=== PATIENT | male | born 1950 | race Caucasian/White ===

== ENCOUNTER 2016-12-18 15:08 | Emergency (ER) | payer OTHER ==
[~2016-12-18] VITALS: Ht 188 cm; Wt 111.0 kg
[~2016-12-18 15:08] MED LIST: ASPI81TA82 PO; CANA100T; JANU50TA9 PO; LIPI10TA PO; LISI-363 PO; MELO15; METO50TA; MULTCAP14 PO; PLAV75TA PO; PRED20 PO; ZOVI800T13 PO
[2016-12-18 15:15] VITALS: BP 147/98; PULSE 84; RESP 16; TEMP 98.2; O2SAT 98
[2016-12-18] MEDS ORDERED: CLOP75TA PO (16:03)
[2016-12-18] MEDS ORDERED: VERA80TA PO (16:03)
[2016-12-18] MEDS ORDERED: JANU50TA8 PO (16:03)
[2016-12-18] MEDS ORDERED: LISI-519 PO (16:03)
[2016-12-18] MEDS ORDERED: HYDR-3580 PO (16:03)
[2016-12-18] MEDS ORDERED: GLIM1TAB PO (16:03)
[2016-12-18] MEDS ORDERED: ATOR10TA15 PO (16:03)
[2016-12-18 16:10] VITALS: BP 167/86; PULSE 82; RESP 21; TEMP 98.3; O2SAT 96
--- NOTE | 2016-12-18 16:13 | PD ---
HPI Chief Complaint: Neuro Symptoms/ Deficits Time Seen by Provider: 16:00 Travel History International Travel<30 days: No Contact w/Intl Traveler<30days: No Traveled to known affect area: No History of Present Illness HPI This is a 58-year-old male presents for evaluation of right-sided facial numbness, difficulty closing right thigh, numbness of the tongue. Symptoms started at 8 AM this morning. He reports some asymmetry when smiling, increasing his forehead as well. 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 He denies any numbness, tingling, weakness in extremities, chest pain or shortness of breath, recent illness, fevers or chills. He reports history of TIA and diabetes. Primary care physician is Dr. Moreno. No other complaints. [facility] Past Medical History COPD: Yes Cerebrovascular Accident: Yes Diabetes: Yes Diminished Hearing: No Myocardial Infarction: No Social History Alcohol Use: No Tobacco Use: No Substance Use: No Allergies-Medications (Allergen,Severity, Reaction): Coded Allergies: No Known Allergies (Unverified , 12/18/16) Reported Meds & Prescriptions Reported Meds & Active Scripts Active Prednisone (21) 10 mg tab Dose Pack (Prednisone) 10 Mg Pack 10 Mg PO DIRECTED Valacyclovir (Valacyclovir HCl) 500 Mg Tab 500 Mg PO BID 5 Days Reported Hydrocodone-Acetaminophen 7.5-325 mg Tab 1 Tab PO Q6H PRN Atorvastatin (Atorvastatin Calcium) 10 Mg Tab 10 Mg PO HS Lisinopril 5 Mg Tab 5 Mg PO DAILY Verapamil (Verapamil HCl) 80 Mg Tab 80 Mg PO BID Glimepiride 1 Mg Tab 1 Mg PO DAILY Take with breakfast or first main meal Clopidogrel (Clopidogrel Bisulfate) 75 Mg Tab 75 Mg PO DAILY Janumet (Sitagliptin-Metformin) 50-1,000 Mg Tab 1 Tab PO BID Review of Systems Except as stated in HPI: all other systems reviewed are Neg Physical Exam Narrative GENERAL: This is a well-developed well-nourished male in no acute distress SKIN: Warm and dry. HEAD: Atraumatic. Normocephalic. EYES: Pupils equal and round. No scleral icterus. No injection or drainage. ENT: No nasal bleeding or discharge. Mucous membranes pink and moist. NECK: Trachea midline. No JVD. CARDIOVASCULAR: Regular rate and rhythm. No murmur appreciated. RESPIRATORY: No accessory muscle use. Clear to auscultation. Breath sounds equal bilaterally. GASTROINTESTINAL: Abdomen soft, non-tender, nondistended. Hepatic and splenic margins not palpable. MUSCULOSKELETAL: No obvious deformities. No clubbing. No cyanosis. No edema. NEUROLOGICAL: Awake and alert. No obvious cranial nerve deficits. Motor grossly within normal limits. Normal speech. There is flattening of nasolabial folds on the right side of the face when smiling. There is asymmetry when increasing the forehead with some flattening on the right side. Normal finger to nose, normal heel to molina, no extremity drift, peripheral vision is intact in both eyes. PSYCHIATRIC: Appropriate mood and affect; insight and judgment normal. Data Data Last Documented VS Vital Signs Date Time Temp Pulse Resp B/P Pulse Ox O2 Delivery O2 Flow Rate FiO2 12/18/16 16:10 98.3 82 21 167/86 96 Room Air Orders Dressing, Oval Eye Pad Ea (12/18/16 16:15) Artificial Tears Opht Oint (Lacrilube Op (12/18/16 16:15) MDM Medical Decision Making Medical Screen Exam Complete: Yes Emergency Medical Condition: Yes Medical Record Reviewed: Yes Differential Diagnosis Gilbert's palsy, CVA, Lyme's disease, electrolyte abnormality, hypoglycemia Narrative Course 66-year-old male presents with several hours of numbness on the right side of his face, some facial asymmetry with smiling, difficulty closing the right eye. Physical examination is consistent with Gilbert's palsy. In addition He's had Gilbert's palsy in the past and this feels similar. The patient was examined with Dr. Chowdary who agrees. The patient will be treated with prednisone, Valacyclovir. He will be given an eye patch as well as a dose of ophthalmic eye lubrication here. He is stable for discharge. Diagnosis Primary Impression: Gilbert's palsy Additional Instructions: Use the medication as prescribed. Use [id number] lubricating eyedrops. Eye patch to prevent corneal scratching. Follow up close with primary care physician and return for any emergent medical conditions. Med/Other Pt SpecificInfo: Prescription(s) given Scripts Prednisone (21) 10 mg tab Dose Pack 10 Mg Pack10 Mg PO DIRECTED #1 DSPK Ref 0 Prov:Armando Chowdary MD 12/18/16 Valacyclovir 500 Mg [id number] Mg PO BID 5 Days Ref 0 Prov:Armando Chowdary MD 12/18/16 Disposition: 01 DISCHARGE HOME Condition: Stable Vinod Dunn Dec 18, 2016 16:13
[2016-12-18] MEDS ORDERED: ARTIFICIAL TEARS OPTH OINT 3.5 APPLIC/3.5 GM TUBO RIGHT EYE ONE (16:15)
[2016-12-18] MEDS ORDERED: VALA500T PO (16:18)
[2016-12-18] MEDS ORDERED: PRED10PA PO (16:18)
== END 2016-12-18 17:27 | disposition home or self-care (01) ==
LOC: NEPE 15:08
DX: G51.0 Bell's palsy (principal); J44.9 Chronic obstructive pulmonary disease, unspecified; E11.9 Type 2 diabetes mellitus without complications; Z86.73 Personal history of transient ischemic attack (TIA), and cerebral infarction without residual deficits; Z79.899 Other long term (current) drug therapy
CPT/HCPCS: 99284